=== PATIENT | female | born 1975 | race Caucasian/White ===

== ENCOUNTER 2016-04-09 03:15 | Emergency (ER) | payer OTHER ==
[~2016-04-09] VITALS: Ht 149.8 cm; Wt 45.4 kg
[~2016-04-09 03:15] MED LIST: BIAXIN500 MG PO; CELEXA10 MG PO; CLARITIN10 MG PO; DULERA100; Fioricet 325 MG1 TAB PO; MOTRIN800 MG PO; NORFLEX100 MG PO; ROBAXIN750 MG PO; SINGULAIR10 MG PO; TRAMADOL HCL50 MG PO; VICODIN ES 7501 TAB PO; VICODIN1 TAB PO
[2016-04-09] MEDS ORDERED: TOPAMAX25 M3 PO (03:50)
[2016-04-09] MEDS ORDERED: PERCOCET 325 MG1 TA5 PO (03:51)
[2016-04-09] MEDS ORDERED: CELEXA20 MG PO (03:51)
[2016-04-09] MEDS ORDERED: LYRICA100 M1 PO (03:51)
[2016-04-09] MEDS ORDERED: IMITREX25 M1 PO (03:55)
[2016-04-09] MEDS ORDERED: Orphenadrine C100 MG PO (05:35)
[2016-04-09] MEDS ORDERED: KETOROLAC10 MG PO (05:35)
== END 2016-04-09 06:42 | disposition home or self-care (01) ==
LOC: ED 03:15
DX: S39.012A Strain of muscle, fascia and tendon of lower back, initial encounter (principal); S29.019A Strain of muscle and tendon of unspecified wall of thorax, initial encounter; Z88.2 Allergy status to sulfonamides; Z79.899 Other long term (current) drug therapy; X58.XXXA Exposure to other specified factors, initial encounter; Y93.89 Activity, other specified; Y92.89 Other specified places as the place of occurrence of the external cause; Y99.9 Unspecified external cause status

== ENCOUNTER → 2018-06-24 | Outpatient (CLI) | payer SELFPAY ==
[~2018-06-24] MED LIST changes: +CELEXA20 MG PO; +IMITREX25 M1 PO; +KETOROLAC10 MG PO; +LYRICA100 M1 PO; +Orphenadrine C100 MG PO; +PERCOCET 325 MG1 TA5 PO; +TOPAMAX25 M3 PO
== END | disposition home or self-care (01) ==
LOC: RAD 13:21
DX: M79.671 Pain in right foot (principal)

== ENCOUNTER 2019-10-14 18:09 | Emergency (ER) | payer OTHER ==
[~2019-10-14] VITALS: Ht 149.8 cm; Wt 50.8 kg
[2019-10-14 19:18] LABS: BASO # 0.1 10*3/uL (0.0-0.1); BASO % 0.4 % (0.0-1.0); EOS # 0.2 10*3/uL (0.0-0.4); EOS % 1.5 % (1.0-4.0); LYMPH # 2.7 10*3/uL (1.3-4.4); LYMPH % 23.6 % (27.0-41.0); MEAN CELL VOLUME 87.8 fl (81.0-99.0); MEAN CORPUSCULAR HGB 29.1 pg (27.0-31.0); MEAN CORPUSCULAR HGB CONC 33.2 g/dl (33.0-37.0); MONO # 0.9 10*3/uL (0.1-1.0); MONO % 8.1 % (3.0-9.0); NEUT # 7.6 10*3/uL (2.3-7.9); NEUT % 66.1 % (47.0-73.0); PLATELET COUNT AUTOMATED 333 10*3/uL (130-400); RED BLOOD COUNT 4.33 10*6/uL (4.10-5.10); RED CELL DISTRI WIDTH 13.2 % (0-14.5); WHITE BLOOD COUNT 11.5 10*3/uL (4.8-10.8)
[2019-10-14 19:33] LABS: ALBUMIN 3.2 gm/dl (3.1-4.5); ALKALINE PHOSPHATASE 68 U/L (45-117); BUN 11 mg/dl (7-24); CHLORIDE 110 mmol/L (98-107); CREATININE 0.69 mg/dL (0.55-1.02); POTASSIUM 3.4 mmol/L (3.5-5.1); SGOT/AST 88 IU/L (3-35); SGPT/ALT 82 U/L (12-78); SODIUM 137 mmol/L (136-145); TOTAL PROTEIN 7.6 gm/dL (6.4-8.2)
[2019-10-14 20:35] LABS: BILIRUBIN NEGATIVE (NEGATIVE); BLOOD 2+ (NEGATIVE); CLARITY CLEAR (CLEAR); COLOR YELLOW (YELLOW); GLUCOSE NEGATIVE (NEGATIVE); KETONE 3+ (NEGATIVE); LEUKO ESTERASE TRACE (NEGATIVE); NITRITE NEGATIVE (NEGATIVE); SPECIFIC GRAVITY 1.015 (1.005-1.030); UROBILINOGEN 0.2 E.U./dl (0.2-1.0)
[2019-10-14 20:36] LABS: BACTERIA TRACE; EPITHELIAL CELLS 31-40; MUCOUS 2+; RBC 0-2 rbc/hpf (0-2); URINE AMPHETAMINES < 1000 (1000ng/ml); URINE BARBITURATES < 200 (200ng/ml); URINE BENZODIAZEPINES < 200 (200ng/ml); URINE CANNABINOIDS (THC) < 50 (50ng/ml); URINE COCAINE < 300 (300ng/ml); URINE METHADONE < 300 (300ng/ml); URINE OPIATES > 300 (300ng/ml); WBC 0-2 wbc/hpf (0-5)
[2019-10-14 20:41] LABS: URINE PHENCYCLIDINE < 25 (25ng/ml)
== END 2019-10-14 21:41 | disposition home or self-care (01) ==
LOC: ED 18:09
PROVIDERS: Nurse Practitioner Family
DX: S16.1XXA Strain of muscle, fascia and tendon at neck level, initial encounter (principal); S30.0XXA Contusion of lower back and pelvis, initial encounter; S09.90XA Unspecified injury of head, initial encounter; Z88.2 Allergy status to sulfonamides; Z79.899 Other long term (current) drug therapy; X58.XXXA Exposure to other specified factors, initial encounter; Y93.89 Activity, other specified; Y92.89 Other specified places as the place of occurrence of the external cause; Y99.8 Other external cause status